=== PATIENT | male | born 1950 | race Caucasian/White ===

== ENCOUNTER 2025-07-14 20:20 | Inpatient (IN) | payer OTHER ==
[~2025-07-14] VITALS: Ht 165.1 cm; Wt 68.2 kg
[2025-07-14] MEDS: LEVETIRACETAM 500MG PREMIX 100 ML IV ONE (20:45)
[2025-07-14 21:04] LABS: BASOPHILS % 0.4 % (0.0-2.0); EOSINOPHILS % 0.3 % (0.0-5.0); HEMATOCRIT. 47.9 % (42.0-52.0); HEMOGLOBIN. 15.8 g/dL (14.0-18.0); LYMPHOCYTES % 8.5 % (20.0-50.0); MEAN PLATELET VOLUME 8.9 fl (7.4-10.4); MONOCYTES % 5.1 % (2.0-8.0); NEUTROPHILS % 85.7 % (40.0-76.0); PLATELET 189 x1000/uL (130-400); RED BLOOD CELL COUNT 5.85 mill/uL (4.7-6.1); RED CELL DISTRIBUTION WIDTH 13.3 % (11.6-14.6)
[2025-07-14 21:18] LABS: CREATININE 1.0 mg/dL (0.6-1.3); UREA NITROGEN BLOOD 14 mg/dL (9-23)
[2025-07-14 21:20] LABS: ASPARTATE AMINOTRANSFERASE 20 IU/L (<34); BILIRUBIN DIRECT 0.2 mg/dL (<=3.0)
[2025-07-14 21:21] LABS: BILIRUBIN TOTAL 0.6 mg/dL (0.1-1.0); PROTEIN TOTAL 7.9 g/dL (6.0-8.3)
[2025-07-14] MEDS: SODIUM CHLORIDE 0.9% 1,000 ML IV ONE (21:27)
[2025-07-14 21:56] LABS: CLARITY URINE CLEAR (CLEAR); COLOR URINE YELLOW (YELLOW); GLUCOSE URINE NEGATIVE (NEGATIVE); KETONES URINE NEGATIVE (NEGATIVE); LEUKOCYTE ESTERASE URINE NEGATIVE (NEGATIVE); NITRITE URINE NEGATIVE (NEGATIVE); OCCULT BLOOD URINE 3+ (NEGATIVE); PH URINE 6.0 (4.5-8.0); PROTEIN URINE TRACE (NEGATIVE); SPECIFIC GRAVITY URINE 1.013 (1.005-1.030); UROBILINOGEN URINE 1.0 E.U./dL (0.2-1.0)
[2025-07-14] MEDS ORDERED: ONDANSETRON HCL 4MG/2ML INJ IV PRN (22:00)
[2025-07-14] MEDS ORDERED: CLONIDINE 0.1MG TABLET PO PRN (22:00)
[2025-07-14] MEDS ORDERED: IPRATROPIUM/ALBUTEROL 0.5-3(2.5)MG/3ML NEB HHN PRN (22:00)
[2025-07-14 22:01] LABS: *AMPHETAMINES SCREEN URINE NEGATIVE (NEGATIVE); *BARBITURATES SCREEN URINE NEGATIVE (NEGATIVE); *BENZODIAZEPINES SCREEN URINE PRESUMPTIVE POSITIVE (NEGATIVE); *COCAINE SCREEN URINE NEGATIVE (NEGATIVE); CANNABINOID URINE SCREEN NEGATIVE (NEGATIVE); ECSTASY MDMA SCREEN URINE NEGATIVE (NEGATIVE); METHADONE URINE SCREEN NEGATIVE (NEGATIVE); OPIATES URINE SCREEN NEGATIVE (NEGATIVE); PHENCYCLIDINE URINE SCREEN NEGATIVE (NEGATIVE)
[2025-07-14] MEDS: PIPERACILLIN/TAZO 3.375G/50ML 50 ML IV NR (22:01)
[2025-07-14 22:10] LABS: BACTERIA URINE NONE SEEN; SQUAMOUS EPITHELIAL CELL URINE 1+ /lpf (RARE/1+); WBC URINE 0-2 /hpf (0-2)
[2025-07-14] MEDS: VANCOMYCIN 1.5GM PMX (XELLIA) 300 ML IV NR (22:26)
[2025-07-14 22:34] LABS: INR 1.1
[2025-07-14 23:00] VITALS: BP 136/83; PULSE 86; RESP 22; TEMP 36.7516
[2025-07-15] VITALS (10 sets, daily range): BP systolic 116–144; BP diastolic 71–87; PULSE 67–89; RESP 8–24; TEMP 36.3–36.7; O2SAT 95–100
[2025-07-15] MEDS ORDERED: ATOR40TA70 PO (00:17)
[2025-07-15] MEDS ORDERED: LOSA100T33 PO (00:17)
[2025-07-15] MEDS ORDERED: AMLO10TA80 PO (00:17)
[2025-07-15] MEDS ORDERED: DONE10TA43 PO (00:17)
[2025-07-15] MEDS ORDERED: LURA40TA4 PO (00:18)
[2025-07-15] MEDS ORDERED: ASPI-1406 PO (00:18)
[2025-07-15 02:15] LABS: BG BASE EXCESS -2.6 mmol/L (-2.0-3.0); BG CARBOXYHEMOGLOBIN 0.9 % (0.5-1.5); BG DEOXYHEMOGLOBIN 0.2 % (0.0-5.0); BG FRACTION INSPIRED OXYGEN 100; BG HCO3 ACT 20.2 mmol/L (21.0-28.0); BG METHEMOGLOBIN 0.2 % (0.5-1.5); BG OXYGEN SATURATION 99.8 % (94.0-98.0); BG OXYHEMOGLOBIN 98.7 % (94.0-98.0); BG PCO2 29.9 mmHg (35.0-48.0); BG PH 7.448 (7.350-7.450); BG PO2 305.8 mmHg (83.0-108.0); BG SAMPLE SITE RIGHT RADIAL; BG TOTAL HEMOGLOBIN 14.3 g/dL (13.5-17.5); BG VENT MODE MASK - NRB
[2025-07-15 03:14] LABS: TROPONIN I HIGH SENSITIVITY 22 ng/L (3.0-53)
[2025-07-15] MEDS: PIPERACILLIN/TAZO 3.375G/50ML 50 ML IV SCH (05:29)
[2025-07-15 07:22] LABS: BASOPHILS % 0.3 % (0.0-2.0); EOSINOPHILS % 0.1 % (0.0-5.0); HEMATOCRIT. 42.7 % (42.0-52.0); HEMOGLOBIN. 14.2 g/dL (14.0-18.0); LYMPHOCYTES % 14.4 % (20.0-50.0); MEAN PLATELET VOLUME 9.1 fl (7.4-10.4); MONOCYTES % 8.0 % (2.0-8.0); NEUTROPHILS % 77.2 % (40.0-76.0); PLATELET 164 x1000/uL (130-400); RED BLOOD CELL COUNT 5.20 mill/uL (4.7-6.1); RED CELL DISTRIBUTION WIDTH 13.7 % (11.6-14.6)
[2025-07-15 07:46] LABS: CREATININE 0.7 mg/dL (0.6-1.3); UREA NITROGEN BLOOD 10 mg/dL (9-23)
[2025-07-15 07:48] LABS: PHOSPHORUS 2.9 mg/dL (2.5-4.9)
[2025-07-15] MEDS: IPRATROPIUM/ALBUTEROL 0.5-3(2.5)MG/3ML NEB HHN SCH (08:14)
[2025-07-15 08:37] LABS: TROPONIN I HIGH SENSITIVITY 21 ng/L (3.0-53)
[2025-07-15] MEDS ORDERED: LURASIDONE HCL PO SCH (09:00)
[2025-07-15] MEDS ORDERED: DONEPEZIL HCL 10MG TABLET PO SCH (09:00)
[2025-07-15] MEDS: ASPIRIN 81MG EC TABLET PO SCH (09:46)
[2025-07-15] MEDS: ATORVASTATIN CALCIUM 40MG TABLET PO SCH (09:46)
[2025-07-15] MEDS: AMLODIPINE 10MG TABLET PO SCH (09:47)
[2025-07-15] MEDS: DONEPEZIL HCL 5MG TABLET PO SCH (09:47)
[2025-07-15] MEDS: LOSARTAN 100 MG TABLET PO SCH (09:48)
[2025-07-15] MEDS: ENOXAPARIN 30MG/0.3ML SYR SUBCUT SCH (10:40)
[2025-07-15] MEDS: VANCOMYCIN 750MG PREMIX 150 ML IV SCH (12:13)
[2025-07-15] MEDS: LEVETIRACETAM 500MG PREMIX 100 ML IV SCH (20:49)
[2025-07-15] MEDS ORDERED: LEVETIRACETAM 500MG in NACL 100ML PREMIX IV SCH (21:00)
[2025-07-16] VITALS (9 sets, daily range): BP systolic 109–130; BP diastolic 59–77; PULSE 18–81; RESP 16–19; TEMP 36.1–36.8; O2SAT 74–99
[2025-07-16 06:41] LABS: BASOPHILS % 0.5 % (0.0-2.0); EOSINOPHILS % 1.9 % (0.0-5.0); HEMATOCRIT. 40.2 % (42.0-52.0); HEMOGLOBIN. 13.4 g/dL (14.0-18.0); LYMPHOCYTES % 23.2 % (20.0-50.0); MEAN PLATELET VOLUME 9.0 fl (7.4-10.4); MONOCYTES % 8.9 % (2.0-8.0); NEUTROPHILS % 65.5 % (40.0-76.0); PLATELET 150 x1000/uL (130-400); RED BLOOD CELL COUNT 4.92 mill/uL (4.7-6.1); RED CELL DISTRIBUTION WIDTH 13.8 % (11.6-14.6)
[2025-07-16 06:58] LABS: VITAMIN B12 SERUM 596 pg/mL (211-911)
[2025-07-16] MEDS: DONEPEZIL HCL 10MG TABLET PO SCH (09:00)
[2025-07-16 10:21] LABS: CREATININE 1.0 mg/dL (0.6-1.3); UREA NITROGEN BLOOD 11 mg/dL (9-23)
[2025-07-16] MEDS: DEXT 5%/0.9% NACL 1,000 ML IV SCH (12:06)
[2025-07-17] VITALS (10 sets, daily range): BP systolic 130–173; BP diastolic 71–82; PULSE 68–80; RESP 16–18; TEMP 36.7–37.5; O2SAT 96–98
[2025-07-17 08:26] LABS: BASOPHILS % 0.7 % (0.0-2.0); EOSINOPHILS % 2.5 % (0.0-5.0); HEMATOCRIT. 43.3 % (42.0-52.0); HEMOGLOBIN. 13.9 g/dL (14.0-18.0); LYMPHOCYTES % 27.8 % (20.0-50.0); MEAN PLATELET VOLUME 10.0 fl (7.4-10.4); MONOCYTES % 8.0 % (2.0-8.0); NEUTROPHILS % 61.0 % (40.0-76.0); PLATELET 71 x1000/uL (130-400); RED BLOOD CELL COUNT 5.21 mill/uL (4.7-6.1); RED CELL DISTRIBUTION WIDTH 13.8 % (11.6-14.6)
[2025-07-17 08:35] LABS: CREATININE 0.8 mg/dL (0.6-1.3); UREA NITROGEN BLOOD 7 mg/dL (9-23)
[2025-07-17 08:37] LABS: ASPARTATE AMINOTRANSFERASE 18 IU/L (<34)
[2025-07-17 08:38] LABS: BILIRUBIN DIRECT 0.3 mg/dL (<=3.0); BILIRUBIN TOTAL 0.8 mg/dL (0.1-1.0); PHOSPHORUS 2.6 mg/dL (2.5-4.9); PROTEIN TOTAL 6.5 g/dL (6.0-8.3)
[2025-07-18] VITALS (9 sets, daily range): BP systolic 113–173; BP diastolic 68–84; PULSE 60–82; RESP 16–21; TEMP 36.3–37.2; O2SAT 95–98
[2025-07-19] VITALS (8 sets, daily range): BP systolic 132–169; BP diastolic 76–90; PULSE 63–88; RESP 16–18; TEMP 36.2–36.8; O2SAT 95–99
[2025-07-20] VITALS: BP 145/97; PULSE 94; RESP 16; TEMP 36.3; O2SAT 98
[2025-07-20 04:00] VITALS: BP 143/92; PULSE 78; RESP 16; TEMP 37; O2SAT 100
[2025-07-20 07:51] VITALS: PULSE 63; RESP 18
[2025-07-20 08:00] VITALS: BP 144/84; PULSE 97; RESP 16; TEMP 36.3; O2SAT 97
[2025-07-20 11:10] LABS: BG BASE EXCESS 0.1 mmol/L (-2.0-3.0); BG CARBOXYHEMOGLOBIN 1.3 % (0.5-1.5); BG DEOXYHEMOGLOBIN 3.1 % (0.0-5.0); BG FRACTION INSPIRED OXYGEN 21; BG HCO3 ACT 23.5 mmol/L (21.0-28.0); BG METHEMOGLOBIN 0.3 % (0.5-1.5); BG OXYGEN SATURATION 96.8 % (94.0-98.0); BG OXYHEMOGLOBIN 95.3 % (94.0-98.0); BG PCO2 34.5 mmHg (35.0-48.0); BG PH 7.451 (7.350-7.450); BG PO2 84.1 mmHg (83.0-108.0); BG SAMPLE SITE LEFT RADIAL; BG TOTAL HEMOGLOBIN 14.5 g/dL (13.5-17.5); BG VENT MODE ROOM AIR
[2025-07-20 12:00] VITALS: BP 136/77; PULSE 73; RESP 16; TEMP 36.4; O2SAT 97
[2025-07-20] MEDS ORDERED: ASPI-1406 PO (15:37)
[2025-07-20] MEDS ORDERED: ATOR40TA70 PO (15:37)
[2025-07-20] MEDS ORDERED: MIRT-89 PO (15:37)
[2025-07-20] MEDS ORDERED: KEPP500 MT (15:37)
[2025-07-20] MEDS ORDERED: LURA40TA4 PO (15:37)
[2025-07-20] MEDS ORDERED: LOSA100T33 PO (15:37)
[2025-07-20] MEDS ORDERED: DONE10TA43 PO (15:37)
[2025-07-20] MEDS ORDERED: AMOX1TAB16 MT (15:37)
[2025-07-20] MEDS ORDERED: AMLO10TA80 PO (15:37)
[2025-07-20 15:43] VITALS: BP 125/71; PULSE 78; RESP 17; TEMP 97.5
[2025-07-20] MEDS ORDERED: MIRTAZAPINE 15MG TABLET PO SCH (21:00)
== END 2025-07-20 17:18 | disposition home or self-care (01) | DRG 720 ==
LOC: ER 20:20 → 5EST 21:27 → EDBEDREQTM 21:31 → EDBEDREQ 21:31 → EDBEDREQSVC 21:31 → ENRESERV 22:14 → 5WST 07-15 20:26
PROVIDERS: ADMIT Student in an Organized Health Care Education/Training Program; ATTEND Student in an Organized Health Care Education/Training Program
PROC: 4A00X4Z Measurement of Central Nervous Electrical Activity, External Approach (ICD-10-PCS; principal; 2025-07-20)
DX: A41.9 Sepsis, unspecified organism (principal); G92.8 Other toxic encephalopathy; J96.01 Acute respiratory failure with hypoxia; G40.901 Epilepsy, unspecified, not intractable, with status epilepticus; E43 Unspecified severe protein-calorie malnutrition; E87.20 Acidosis, unspecified; J18.9 Pneumonia, unspecified organism; R65.20 Severe sepsis without septic shock; F03.90 Unspecified dementia, unspecified severity, without behavioral disturbance, psychotic disturbance, mood disturbance, and anxiety
CPT/HCPCS: 36415; 36600; 71045; 80048; 80076; 80202; 80305; 80320; 81003; 82375; 82550; 82607; 82805; 83605; 83735; 84100; 84145; 84443; 84484; 85025; 93005; 94070; 94640; 94664; 95816; 97116; 97162; 98960; 99291; A4615; J1650; J1953; J2543; J3373; J7030; J7042; G0480